=== PATIENT | male | born 1960 | race Two or more races ===

== ENCOUNTER → 2022-10-26 06:00 | Outpatient (CLI) | payer OTHER ==
[~2022-10-26] VITALS: Ht 177.8 cm; Wt 73.5 kg
[~2022-10-26 06:00] MED LIST: DORZOLAMIDE-TIM10 ML OPHT
== END | disposition home or self-care (01) ==
LOC: LAB 06:00 → ADM 07:45 → CIR.AMB 10-31 07:00 → EDSTATUS 10-31 07:45
PROVIDERS: ATTEND Surgery
DX: K40.91 Unilateral inguinal hernia, without obstruction or gangrene, recurrent (principal); Z01.818 Encounter for other preprocedural examination; Z20.828 Contact with and (suspected) exposure to other viral communicable diseases; Z20.818 Contact with and (suspected) exposure to other bacterial communicable diseases

== ENCOUNTER → 2023-01-28 | Outpatient (CLI) | payer OTHER ==
[~2023-01-28] MED LIST changes: +LUMIGAN2.5 M1 OP
== END | disposition home or self-care (01) ==
LOC: LAB 15:08
DX: Z12.11 Encounter for screening for malignant neoplasm of colon (principal)

== ENCOUNTER 2023-01-30 07:10 | Day surgery (SDC) | payer OTHER ==
[~2023-01-30] VITALS: Ht 177.8 cm; Wt 74.4 kg
[2023-01-30] MEDS ORDERED: PERCOCET 5-3251 EACH PO (13:01)
[2023-01-30] MEDS ORDERED: POLY119PG PO (13:01)
[2023-01-30] MEDS ORDERED: NEURONTIN300 MG PO (13:01)
== END 2023-01-30 17:10 | disposition home or self-care (01) ==
LOC: CIR.AMB 07:10
PROVIDERS: ATTEND Surgery
DX: K40.91 Unilateral inguinal hernia, without obstruction or gangrene, recurrent (principal); Z20.822 Contact with and (suspected) exposure to COVID-19
CPT/HCPCS: 49651; C1781